=== PATIENT | female | born 1995 | race Caucasian/White ===

== ENCOUNTER 2016-12-02 12:22 | Emergency (ER) | payer BC ==
[2016-12-02] MEDS ORDERED: NORMAL SALINE 1000 ML 2,000 ML IV ONE (12:38)
--- NOTE | 2016-12-02 12:40 | ER Document Report ---
ED Medical Screen (RME) - General Stated Complaint: URINARY PROBLEM Time seen by provider: 12:38 Mode of Arrival: Ambulatory Information source: Patient Notes: 21-year-old female up on [place] with body aches and started vomiting. pulse is 148 in triage and she continues to vomit. no diarrhea. Complaining of right flank pain and a headache. She had a UTI and took over amoxicillin. Chills and sweats. I have greeted and performed a rapid initial assessment of this patient. A comprehensive ED assessment, evaluation of the patient, analysis of test results , and completion of the medical decision making process will be contacted by additional ED providers. TRAVEL OUTSIDE OF THE [place] IN LAST 30 DAYS: No - Related Data Allergies/Adverse Reactions: No Known Allergies Allergy (Verified 12/21/12 08:29) Past Medical History - Immunizations Immunizations up to date: Yes Hx Diphtheria, Pertussis, Tetanus Vaccination: Yes Physical Exam - Vital signs Vitals: Temp Pulse Resp BP Pulse Ox 98.5 F 148 H 20 115/63 100 12/02/16 12:12/02/16 12:12/02/16 12:12/02/16 12:12/02/16 12:26 Course - Vital Signs Vital signs: Temp Pulse Resp BP Pulse Ox 98.5 F 148 H 20 115/63 100 12/02/16 12:26 12/02/16 12:12/02/16 12:26 12/02/16 12:12/02/16 12:26
[2016-12-02] MEDS ORDERED: METOCLOPRAMIDE HCL 10 MG TABLET PO ONE (12:41)
[2016-12-02] MEDS ORDERED: CEFTRIAXONE 1 GM/D5W RTU 50 ML IV ONE (12:46)
[2016-12-02 13:00] LABS: APPEARANCE,URINE SLIGHTLY-CLOUDY; BILIRUBIN,URINE NEGATIVE (NEGATIVE); GLUCOSE, URINE NEGATIVE (NEGATIVE); KETONES,URINE 80 mg/dL (NEGATIVE); LEUKOCYTE ESTERASE,URINE SMALL (NEGATIVE); NITRITE,URINE NEGATIVE (NEGATIVE); PROTEIN,URINE 100 mg/dL (NEGATIVE); URINE SPECIFIC GRAVITY 1.018
--- NOTE | 2016-12-02 13:11 | ER Document Report ---
ED GI/ <NICOL HENSON - Last Filed: 12/03/16 05:58> - General Mode of Arrival: Ambulatory TRAVEL OUTSIDE OF THE [place] IN LAST 30 DAYS: No <MAXWELL CORCORAN - Last Filed: 12/03/16 09:55> - General Chief Complaint: Nausea/Vomiting Stated Complaint: URINARY PROBLEM Notes: The patient is a 21-year-old female who presents with dysuria, bilateral flank pain, nausea and vomiting. She has irregular periods and was on control, but intermittently takes control. She is throwing up everything that she is drinking over the past several days. She was diagnosed with the flu last week and was feeling better. She also started to have dysuria and took some home amoxicillin 2 days ago. She denies nausea, vomiting, abdominal pain, vaginal bleeding, fever, headache, chest pain, shortness of breath. (MAXWELL CORCORAN) - Related Data Allergies/Adverse Reactions: No Known Allergies Allergy (Verified 12/21/12 08:29) Past Medical History - General Information source: Patient - Social History Smoking Status: Never Smoker Family History: Reviewed & Not Pertinent Patient has suicidal ideation: No Patient has homicidal ideation: No Renal/ Medical History: Denies: Hx Peritoneal Dialysis - Immunizations Immunizations up to date: Yes Hx Diphtheria, Pertussis, Tetanus Vaccination: Yes <MAXWELL CORCORAN - Last Filed: 12/03/16 09:55> Review of Systems <NICOL HENSON - Last Filed: 12/03/16 05:58> <MAXWELL CORCORAN - Last Filed: 12/03/16 09:55> - Review of Systems Notes: REVIEW OF SYSTEMS: CONSTITUTIONAL: -fevers, +chills EENT: -eye pain, -difficulty swallowing, -nasal congestion CARDIOVASCULAR: -chest pain, -syncope. RESPIRATORY: -cough, -SOB GASTROINTESTINAL: -abdominal pain, +nausea, +vomiting, -diarrhea GENITOURINARY: -dysuria, -hematuria MUSCULOSKELETAL: -back pain, -neck pain SKIN: -rash or skin lesions. HEMATOLOGIC: -easy bruising or bleeding. LYMPHATIC: -swollen, enlarged glands. NEUROLOGICAL: -altered mental status or loss of consciousness, -headache, - neurologic symptoms PSYCHIATRIC: -anxiety, -depression. ALL OTHER SYSTEMS REVIEWED AND NEGATIVE. (MAXWELL CORCORAN) Physical Exam <NICOL HENSON - Last Filed: 12/03/16 05:58> <MAXWELL CORCORAN - Last Filed: 12/03/16 09:55> - Vital signs Vitals: Temp Pulse Resp BP Pulse Ox 98.5 F 148 H 20 115/63 100 12/02/16 12:26 12/02/16 12:26 12/02/16 12:26 12/02/16 12:26 12/02/16 12:26 (NICOL HENSON) (MAXWELL CORCORAN) - Notes Notes: PHYSICAL EXAMINATION: GENERAL: Well-appearing, well-nourished and in no acute distress. HEAD: Atraumatic, normocephalic. EYES: Pupils equal round and reactive to light, extraocular movements intact, sclera anicteric, conjunctiva are normal. ENT: nares patent, oropharynx clear without exudates. Moist mucous membranes. NECK: Normal range of motion, supple without lymphadenopathy LUNGS: Breath sounds clear to auscultation bilaterally and equal. No wheezes rales or rhonchi. HEART: Tachycardic, regular rhythm, no murmurs ABDOMEN: Soft, nontender, normoactive bowel sounds. No guarding, no rebound. No masses appreciated. EXTREMITIES: Normal range of motion, no pitting or edema. No cyanosis. NEUROLOGICAL: Cranial nerves grossly intact. Normal speech, normal gait. Normal sensory, motor, and reflex exams. PSYCH: Normal mood, normal affect. SKIN: Warm, Dry, normal turgor, no rashes or lesions noted. (MAXWELL CORCORAN) Course - Laboratory Result Diagrams: 12/02/16 13:20 12/02/16 13:20 <NICOL HENSON - Last Filed: 12/03/16 05:58> - Laboratory Result Diagrams: 12/02/16 13:20 12/02/16 13:20 - Diagnostic Test Radiology reviewed: Image reviewed, Reports reviewed - EKG Interpretation by Wy EKG shows normal: Sinus rhythm, ST-T Waves - non-specific T-wave changes in lateral leads Rate: Tachycardia <MAXWELL CORCORAN - Last Filed: 12/03/16 09:55> - Re-evaluation Re-evalutation: 12/03/16 02:11 Patient signed out to me by Dr. Corcoran. Patient is resting comfortably. Patient with no new complaints. No difficulty breathing. No chest pain. Heart rate in the 130s. EKG was repeated which is showing a sinus tachycardia. No SVT. Blood pressure is 90s over 60s. Patient has had some back pain and like Tylenol. Patient was recently nauseated and was given Zofran. Temperature is obtained and no fever. Patient appears well otherwise. We will continue to monitor her 12/03/16 05:59 Patient reevaluated. Heart rate is down in the 90s at this time. Blood pressure is 98/65. Patient has no complaints. No nausea. Patient does become tachycardic when she starts to move around. She will be held in the emergency department for evaluation by Dr. Corcoran at 9 AM (NICOL HENSON) Patient's nausea and vomiting have resolved. She feels much better. Ultrasound shows an intrauterine fetus with a EGD 17 [id number]. Despite 4 L of fluids, patient remains persistently tachycardic in the 120's with a leukocytosis. BP has been high 90's/60's (MAP's in 70's). She has evidence of a mild UTI, but no flank pain to suggest pyelonephritis. Flu negative. Troponin sent to assess for evidence of myocarditis, especially with having a URI last week. CXR does not show any evidence of pneumonia. With the persistent tachycardia despite an adequate amount of fluid resuscitation, patient will require admission for further evaluation and treatment. 12/02/16 21:[address] Carr (Hospitalist) and he recommends calling OB. Spoke to Dr. Pizarro (OB) and she will call Dr. Carr discuss where patient should be admitted to. 12/02/16 21:[address] Pizarro and she does not think that this is pyelonephritis or an OB issue causing her persistent tachycardia. Spoke to Dr. Carr and he will be down to evaluate patient. 12/02/16 22:44 Patient says that she is a patient of Dr. Alan. Spoke to Dr. Torres and he does not have a record of her. Will keep patient in the emergency room overnight for close monitoring with a cardiology consult in the morning. Patient completely symptomatically at this time. Heart rate 119 and blood pressure 108/65. Patient's care transferred to Dr. Henson at 22:50. 12/03/16 09:49 No overnight events. Patient remains completely asymptomatic. Heart rate decreased to 98 and on ambulation to 105. Blood pressure 105/82. Spoke to patient about small possibility of PE and risks of radiation, but due to the and no chest pain, shortness of breath or tachypnea, patient does not want further evaluation. Patient states she would like to be discharged and see cardiology as an outpatient. Given strict return precautions and she understands. Will discharge home with Macrobid for UTI and outpatient follow-up with cardiology and OB. Patient and mom comfortable with plan. (MAXWELL CORCORAN) - Vital Signs Vital signs: Temp Pulse Resp BP Pulse Ox 98.8 F 148 H 29 H 96/68 L 100 12/03/16 01:10 12/02/16 12:26 12/03/16 09:01 12/03/16 09:01 12/03/16 09:01 (NICOL HENSON) (MAXWELL CORCORAN) - Laboratory Laboratory results interpreted by me: 12/02/16 12/02/16 12/02/16 12:40 12:40 13:20 WBC 19.8 H Hct 34.8 L Seg Neuts % (Manual) 88 H Band Neutrophils % 6 H Lymphocytes % (Manual) 2 L Abs Neuts (Manual) 18.6 H Sodium Potassium Carbon Dioxide Creatine Kinase Beta HCG, Quant Urine Protein 100 H Urine Ketones 80 H Urine Blood SMALL H Urine Urobilinogen 4.0 H Ur Leukocyte Esterase SMALL H Urine HCG, Qual POSITIVE H 12/02/16 12/02/16 13:20 20:35 WBC Hct Seg Neuts % (Manual) Band Neutrophils % Lymphocytes % (Manual) Abs Neuts (Manual) Sodium 134.0 L Potassium 3.3 L Carbon Dioxide 17 L Creatine Kinase < 20 L Beta HCG, Quant 68185.00 H Urine Protein Urine Ketones Urine Blood Urine Urobilinogen Ur Leukocyte Esterase Urine HCG, Qual (NICOL HENSON) (MAXWELL CORCORAN) - Diagnostic Test Radiology results interpreted by me: CXR: NAD (MAXWELL CORCORAN) Discharge <NICOL HENSON - Last Filed: 12/03/16 05:58> <MAXWELL CORCORAN E - Last Filed: 12/03/16 09:55> - Discharge Clinical Impression: Hypokalemia Qualifiers: Weeks of gestation: 17 weeks Qualified Code(s): Z3A.17 - 17 weeks gestation of UTI (urinary tract infection) Qualifiers: Urinary tract infection type: acute cystitis Hematuria presence: without hematuria Qualified Code(s): N30.00 - Acute cystitis without hematuria Condition: Stable Disposition: HOME, SELF-CARE Additional Instructions: Take the full course of antibiotics. You must follow-up with cardiology this week to have your heart rate rechecked and further evaluation. Also, follow-up with OB for care. URINARY TRACT INFECTION: Your evaluation indicates that you have a urinary tract infection. This is due to germs growing in the bladder. This is a common problem. This infection usually responds quickly to antibiotics. Your antibiotic should be taken exactly as prescribed. Drink plenty of fluids -- three to four quarts a day. Occasionally, a bladder anesthetic will be prescribed to help stop the feeling of urgency until the antibiotic has a chance to clear the infection. This may cause your urine to be dark orange. Certain urine infections require a culture. If the doctor obtained a culture, the results will be back in two days. You should call to see if a change in treatment is needed. A repeat urinalysis after you finish treatment is often recommended. The physician will let you know if further testing is required. Call the doctor if you develop fever, chills, flank pain, inability to urinate, or blood in the urine. ANTIBIOTIC THERAPY: You have been given an antibiotic prescription. It's important that you take all the medication, unless instructed otherwise by your physician. Failure to complete the entire course can result in relapse of your condition. Common side effects of antibiotics include nausea, intestinal cramping, or diarrhea. Women may develop vaginal yeast infections, and babies can get yeast (thrush) in the mouth following the use of antibiotics. Contact your physician if you develop significant side effects from this medication. Allergy to this antibiotic can result in hives, wheezing, faintness, or itching. If symptoms of allergy occur, stop the medication and call the doctor. NITROFURANTOIN (MACRODANTIN, MACROBID): You have received a prescription for nitrofurantoin (Macrodantin). This antibiotic is used for urinary tract infections. Women who are or nursing should notify the physician before taking this medicine. If you have ever had a problem caused by this medication in the past, be sure the physician is aware of it. Common side effects of this medicine include nausea, vomiting, or decreased appetite. Notify your physician if these side effects become severe. Immediately stop this medicine and call the physician if you develop cough , shortness of breath, chest pain, weakness, jaundice (yellow color of the skin and whites of the eyes), or a skin rash. FOLLOW-UP CARE: If you have been referred to a physician for follow-up care, call the physician s office for an appointment as you were instructed or within the next two days. If you experience worsening or a significant change in your symptoms, notify the physician immediately or return to the Emergency Department at any time for re-evaluation. You are . care is best started as early in as possible. If you're unsure about continuing this , you should discuss this with your physician or with furniture removalist's assistant at [facility]. You should take only medications approved by your physician. Acetaminophen can safely be taken for minor pains. As a rule, medication for chronic conditions such as asthma or seizures can safely be continued. You should discuss with the physician every medicine you take. Any regular exercise program can be continued. Talk to your physician, however, before engaging in competitive or demanding sports. Alcohol, smoking, and "street drugs" are dangerous to your baby. Cocaine is especially dangerous. Don't use any illicit drugs! Prescriptions: Doxylamine/Pyridoxine HCl [Mae Orellana 10-10 mg Tablet] 1 each PO Q8H PRN #30 tablet. PRN Reason: Nitrofurantoin/Nitrofuran Mac [Macrobid 100 mg Capsule] 1 tab PO BID #10 capsule Referrals: ANALI SANDHU MD [ACTIVE STAFF] - Follow up as needed
[2016-12-02 13:43] LABS: HEMATOCRIT 34.8 % (36.0-47.0); HGB HCT DIFFERENCE 1.2; MEAN CORPUSCULAR HEMOGLOBIN 29.1 pg (27.0-33.4); MEAN CORPUSCULAR HGB CONC 34.4 g/dL (32.0-36.0); MEAN CORPUSCULAR VOLUME 85 fl (80-97); RED BLOOD COUNT 4.12 10^6/uL (3.72-5.28); RED CELL DISTRIBUTION WIDTH 13.8 % (11.5-14.0); WHITE BLOOD COUNT 19.8 10^3/uL (4.0-10.5)
[2016-12-02 13:49] LABS: ALANINE AMINOTRANSFERASE 26 U/L (9-52); ALKALINE PHOSPHATASE 120 U/L (38-126); ANION GAP 14 (5-19); ASPARTATE AMINO TRANSFERASE 20 U/L (14-36); BLOOD UREA NITROGEN 8 mg/dL (7-20); CALCIUM 9.4 mg/dL (8.4-10.2); CARBON DIOXIDE 17 mmol/L (22-30); CHLORIDE 103 mmol/L (98-107); CREATININE RESULT 0.66 mg/dL (0.52-1.25); GLUCOSE 104 mg/dL (75-110); POTASSIUM 3.3 mmol/L (3.6-5.0); TOTAL PROTEIN 7.4 g/dL (6.3-8.2)
[2016-12-02 13:56] LABS: BAND NEUTROPHILS % (MANUAL) 6 % (3-5); BASOPHILS % (MANUAL) 0 % (0-2); EOSINOPHILS % (MANUAL) 0 % (0-6); LYMPHOCYTES % (MANUAL) 2 % (13-45); TOTAL CELLS COUNTED 100
[2016-12-02 13:57] LABS: RBC MORPHOLOGY COMMENT NORMO-CYTIC/CHROMIC; TOXIC GRANULATION 1+; TOXIC VACUOLATION PRESENT
[2016-12-02] MEDS ORDERED: NORMAL SALINE 1000 ML 1,000 ML IV PRN (15:41)
[2016-12-02] MEDS ORDERED: ACETAMINOPHEN 325 MG TABLET PO ONE (17:15)
[2016-12-02] MEDS ORDERED: POTASSIUM CHLORIDE 10 MEQ TABLET.SA PO ONE (20:56)
[2016-12-02] MEDS ORDERED: NORMAL SALINE 1000 ML 1,000 ML IV ONE (21:01)
[2016-12-02] MEDS ORDERED: CEFTRIAXONE INJ 1000 MG VIAL IV SCH (22:45)
--- NOTE | 2016-12-02 23:08 | PDOC CONSULTATION ---
Consultation Consult Date: 12/02/16 Attending physician:: SEDRICK CARR Consult reason:: IUP at 17wks ega, Maternal Tachycardia History of Present Illness Admission Date/PCP: 12/02/2016 Patient complains of: tachycardia History of Present Illness: CHANTEL YARBROUGH is a 21 year old female at 17+1ega with HANH 05/11/2017 who presented to the ED today for vomiting and unable to tolerate po intake since Friday. 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 She reports that she had nausea and vomiting starting on Friday and then 4 episodes on Friday. She reports that she felt very hungry this am and tried to eat and drink water then promptly threw up everything. She reports back ache because she has been in bed and not moving since Friday. She also reports that on Friday she had painful urination - pain resolves after each void. She has urinary frequency as well - she took some amoxicillin from home. She ate some chick gomez a while in the ER. She reports that she is followed by [facility] in [place]. She was reportedly dx with the flu last week but is feeling better from that. She denies CP/SOB, Denies fevers/ chills, she denies VB/LOF/abd pain. She denies uterine pain only reports lower pelvis above pubic bone pain with voiding. Past Medical History LMP: oct 2016 Gynecological Infection: No Obstetrical History: none Social History Information Source: Patient, Parent Lives with: Family Smoking Status: Never Smoker Frequency of Alcohol Use: None Hx Recreational Drug Use: No Drugs: None Hx Prescription Drug Abuse: No - Advance Directive Resuscitation Status: Full Code Family History Family History: Reviewed & Not Pertinent Parental Family History Reviewed: No Children Family History Reviewed: NA Sibling(s) Family History Reviewed.: NA Medication/Allergy Home Medications: Cephalexin Monohydrate [Keflex 500 mg Capsule] 500 mg PO BID #10 capsule Nitrofurantoin/Nitrofuran Mac [Macrobid 100 mg Capsule] 1 tab PO BID #10 capsule 12/02/16 Allergies/Adverse Reactions: No Known Allergies Allergy (Verified 12/21/12 08:29) Review of Systems Constitutional: ABSENT: chills, fever(s), headache(s), weight gain, weight loss Cardiovascular: PRESENT: palpitations. ABSENT: chest pain, dyspnea on exertion , edema, orthropnea Respiratory: ABSENT: cough, hemoptysis Gastrointestinal: PRESENT: as per HPI, nausea, vomiting Genitourinary: PRESENT: dysuria. ABSENT: hematuria Musculoskeletal: ABSENT: joint swelling Integumentary: ABSENT: rash, wounds Neurological: ABSENT: abnormal gait, abnormal speech, confusion, dizziness, focal weakness, syncope Psychiatric: ABSENT: anxiety, depression, homidical ideation, suicidal ideation Endocrine: ABSENT: cold intolerance, heat intolerance, polydipsia, polyuria Hematologic/Lymphatic: ABSENT: easy bleeding, easy bruising Physical Exam - Physical Exam Vital Signs: Temp Pulse Resp BP Pulse Ox 98.5 F 148 H 25 H 90/56 L 100 12/02/16 12:26 12/02/16 12:26 12/02/16 20:44 12/02/16 20:39 12/02/16 20:44 Intake & Output 12/01/16 12/02/16 12/03/16 06:59 06:59 06:59 Weight 83.1 kg General appearance: PRESENT: no acute distress, well-developed, well-nourished Head exam: PRESENT: atraumatic, normocephalic Respiratory exam: PRESENT: clear to auscultation erin, symmetrical, unlabored Cardiovascular exam: PRESENT: +S1, +S2, tachycardia Vascular exam: PRESENT: normal capillary refill GI/Abdominal exam: PRESENT: normal bowel sounds, soft, other - uterus nttp Rectal exam: PRESENT: deferred Extremities exam: PRESENT: full ROM. ABSENT: calf tenderness, clubbing, pedal edema Musculoskeletal exam: PRESENT: ambulatory Neurological exam: PRESENT: alert, awake, oriented to person, oriented to place , oriented to time, oriented to situation, CN II-XII grossly intact. ABSENT: motor sensory deficit Psychiatric exam: PRESENT: appropriate affect, normal mood. ABSENT: homicidal ideation, suicidal ideation Skin exam: PRESENT: dry, intact, warm. ABSENT: cyanosis, rash Result Laboratory Results: 12/02/16 13:20 12/02/16 13:20 12/02/16 12/02/16 12/02/16 12:40 13:20 13:20 WBC 19.8 H RBC 4.12 Hgb 12.0 Hct 34.8 L MCV 85 MCH 29.1 MCHC 34.4 RDW 13.8 Plt Count 166 Seg Neutrophils % Not Reportable Lymphocytes % Not Reportable Monocytes % Not Reportable Eosinophils % Not Reportable Basophils % Not Reportable Absolute Neutrophils Not Reportable Absolute Lymphocytes Not Reportable Absolute Monocytes Not Reportable Absolute Eosinophils Not Reportable Absolute Basophils Not Reportable Sodium 134.0 L Potassium 3.3 L Chloride 103 Carbon Dioxide 17 L Anion Gap 14 BUN 8 Creatinine 0.66 Est GFR ( Amer) > 60 Est GFR (Non-Af Amer) > 60 Glucose 104 Calcium 9.4 Total Bilirubin 1.0 AST 20 ALT 26 Alkaline Phosphatase 120 Total Protein 7.4 Albumin 4.0 Lipase 27.0 Urine Color DARK YELLOW Urine Appearance SLIGHTLY-CLOUDY Urine pH 5.0 Ur Specific [place] 1.018 Urine Protein 100 H Urine Glucose (UA) NEGATIVE Urine Ketones 80 H Urine Blood SMALL H Urine Nitrite NEGATIVE Ur Leukocyte Esterase SMALL H Urine WBC (Auto) 77 Urine RBC (Auto) 10 Blood Type 12/02/16 13:20 WBC RBC Hgb Hct MCV MCH MCHC RDW Plt Count Seg Neutrophils % Lymphocytes % Monocytes % Eosinophils % Basophils % Absolute Neutrophils Absolute Lymphocytes Absolute Monocytes Absolute Eosinophils Absolute Basophils Sodium Potassium Chloride Carbon Dioxide Anion Gap BUN Creatinine Est GFR ( Amer) Est GFR (Non-Af Amer) Glucose Calcium Total Bilirubin AST ALT Alkaline Phosphatase Total Protein Albumin Lipase Urine Color Urine Appearance Urine pH Ur Specific [place] Urine Protein Urine Glucose (UA) Urine Ketones Urine Blood Urine Nitrite Ur Leukocyte Esterase Urine WBC (Auto) Urine RBC (Auto) Blood Type O POSITIVE 12/02/16 12/02/16 20:35 20:35 Creatine Kinase < 20 L Troponin I < 0.012 Impressions: Obstetrics Ultrasound 12/02/16 16:39 IMPRESSION: LIVING INTRAUTERINE . ESTIMATED GESTATIONAL AGE 17 WEEK 1 DAY. NO VISUALIZED ANOMALIES. Trimester of : Second trimester - 13 weeks 1 day to 27 weeks 6 days. Chest X-Ray 12/02/16 20:56 IMPRESSION: NO ACUTE RADIOGRAPHIC FINDING IN THE CHEST. Assessment & Plan - Diagnosis (1) Qualifiers: Weeks of gestation: 17 weeks Qualified Code(s): Z3A.17 - 17 weeks gestation of Is this a current diagnosis for this admission?: YesPlan: VIUP at 17+1ega. She reports that she is obtaining PNC at [facility] in [place]. has been uncomplicated and currently here in ER for non related complaint. Hospitalist is considering admitting pt for her persistent tachycardia and an evaluation of such - if so then would recommend Daily Doptones. Pt with uncomplicated UTI without fever or CVAT - no e/o pyelonephritis. Appreciate consult from Dr. Corcoran and Dr. Carr and will continue to follow with you. Please call with any questions. (2) UTI (urinary tract infection) Qualifiers: Urinary tract infection type: acute cystitis Hematuria presence: without hematuria Qualified Code(s): N30.00 - Acute cystitis without hematuria Is this a current diagnosis for this admission?: YesPlan: Pt has received IV ROcephin in the ER. Pt has never been febrile in the ER and denies fever at home. She reports Dysuria, frequency. No fever, no CVAT. Mild leukocytosis likely due to pt with recent Flu/Gastroenteritis and Uncomplicated UTI. Would continue to watch. Repeat CBC with diff in am. Very benign exam in ER. Would recommend po abx Cephalexin 500mg po QID until Urine Cx returns and abx can be tailored further. She also reports that she has an appt on with her FL[facility] COORD[facility]ATOR. (3) Tachycardia Is this a current diagnosis for this admission?: YesPlan: Defer management per Hospitalist/Cardiology. BPs appear stable and this may be normal for her. SHe is completely asymptomatic from BP. Denies dizziness/ lightheadedness. No problem with ambulation and no orthostatic complaints. MAPs ok. - Time Time Spent: 30 to 50 Minutes Critical Time spent with patient: Less than 15 minutes Medications reviewed and adjusted accordingly: Yes Anticipated discharge: Home Within: within 48 hours - Inpatient Certification Based on my medical assessment, after consideration of the patient's comorbidities, presenting symptoms, or acuity I expect that the services needed warrant INPATIENT care.: Yes I certify that my determination is in accordance with my understanding of Medicare's requirements for reasonable and necessary INPATIENT services [42 CFR 412.3e].: Yes Medical Necessity: Failure to Improve With Outpatient Therapy, Other - Needs evaluation of perisistent tachycardia
[2016-12-03] MEDS: ONDANSETRON HCL INJ/PF 4 MG/2 ML SDV IV PRN ×2 (00:15→08:39)
[2016-12-03] MEDS ORDERED: NORMAL SALINE 1000 ML 1,000 ML IV ONE (01:03)
[2016-12-03] MEDS ORDERED: ACETAMINOPHEN 325 MG TABLET PO ONE (01:37)
--- NOTE | 2016-12-03 08:54 | ER Document Report ---
Doctor's Note Notes: 12/03/16 08:54 Patient's heart rate is 100, she states she feels well, blood pressure was 90s over 60s, patient will be ambulating reevaluated
[2016-12-03 09:57] VITALS: BP 104/74
--- NOTE | 2016-12-03 23:47 | EKG REPORT ---
SEVERITY:- BORDERLINE ECG - SINUS TACHYCARDIA BORDERLINE T ABNORMALITIES, DIFFUSE LEADS : Confirmed by: Fabio Dumont 03-Dec-2016 23:46:55
--- NOTE | 2016-12-03 23:48 | EKG REPORT ---
SEVERITY:- ABNORMAL ECG - SINUS TACHYCARDIA PROBABLE LEFT ATRIAL ABNORMALITY NONSPECIFIC T ABNORMALITIES, DIFFUSE LEADS : Confirmed by: Fabio Dumont 03-Dec-2016 23:47:14
== END 2016-12-03 10:23 | disposition home or self-care (01) ==
LOC: ER 12:22
DX: O23.12 Infections of bladder in pregnancy, second trimester (principal); O99.282 Endocrine, nutritional and metabolic diseases complicating pregnancy, second trimester; E87.6 Hypokalemia; O21.9 Vomiting of pregnancy, unspecified; O26.892 Other specified pregnancy related conditions, second trimester; R00.0 Tachycardia, unspecified; O99.89 Other specified diseases and conditions complicating pregnancy, childbirth and the puerperium; M54.9 Dorsalgia, unspecified; O99.112 Other diseases of the blood and blood-forming organs and certain disorders involving the immune mechanism complicating pregnancy, second trimester; D72.829 Elevated white blood cell count, unspecified; Z3A.17 17 weeks gestation of pregnancy
CPT/HCPCS: 93005 ×2; 99285; 96361; 96375; 96365; 96366; 86900; 86901; 36415; 87086; 82550; 84702; 83690; 85025; 81025; 87088; 80053; 81001; 84484; 87186; 83605; 87804; 71010; 76805; 93010 ×2; J0696 ×2; J2405; J7030

== ENCOUNTER 2017-11-26 22:43 | Emergency (ER) | payer BC, MEDICAID ==
[2017-11-26] MEDS ORDERED: ACETAMINOPHEN 325 MG TABLET PO ONE (23:51)
--- NOTE | 2017-11-27 00:55 | RADIOLOGY REPORT (SQ) ---
EXAM DESCRIPTION: ANKLE LEFT COMPLETE CLINICAL HISTORY: injury COMPARISON: None. FINDINGS: 3 views of the left ankle. No acute fracture or dislocation. Normal osseous mineralization. Tibial plafond and talar dome have normal appearance. Base of the fifth metatarsal is intact. IMPRESSION: No acute fracture or dislocation.
--- NOTE | 2017-11-27 03:56 | ER Document Report ---
ED Extremity Problem, Lower - General Chief Complaint: Ankle Injury Stated Complaint: LEFT ANKLE INJURY Time Seen by Provider: 11/27/17 03:24 Mode of Arrival: Wheelchair Information source: Patient TRAVEL OUTSIDE OF THE [place] IN LAST 30 DAYS: No - HPI Patient complains to provider of: Injury - pt hit L ankle with bowling ball accidentally while throwing the ball. - Related Data Allergies/Adverse Reactions: No Known Allergies Allergy (Verified 12/21/12 08:29) Past Medical History - General Information source: Patient - Social History Smoking Status: Never Smoker Cigarette use (# per day): No Family History: Reviewed & Not Pertinent Renal/ Medical History: Denies: Hx Peritoneal Dialysis - Immunizations Immunizations up to date: Yes Hx Diphtheria, Pertussis, Tetanus Vaccination: Yes Review of Systems - Review of Systems Constitutional: No symptoms reported EENT: No symptoms reported Cardiovascular: No symptoms reported Respiratory: No symptoms reported Gastrointestinal: No symptoms reported Musculoskeletal: See HPI, Joint pain -: Yes All other systems reviewed and negative Physical Exam - General General appearance: Appears well In distress: None - Extremities Ankle: Tender - there is min-mod TTP of the lateral aspect of the L ankle diffusely. It is N/V intact and there is FROM Course - Diagnostic Test Radiology reviewed: Reports reviewed - neg fx Procedures - Immobilization Left Ankle Time completed: 03:55 Pre-Proc Neuro Vasc Exam: Normal Immobilizer type: Ankle stirrup Performed by: RN Post-Proc Neuro Vasc Exam: Normal Alignment checked and good: Yes Discharge - Discharge Clinical Impression: Contusion of ankle, left Qualifiers: Encounter type: initial encounter Qualified Code(s): S90.02XA - Contusion of left ankle, initial encounter Condition: Stable Disposition: HOME, SELF-CARE Instructions: Ankle Stirrup Splint ([facility]), Use of Crutches ([facility]), Ice & Elevation ([facility]), Sprained Ankle ([facility]) Additional Instructions: rest, tylenol/motrin for pain, no weight bearing for 3 days, return if worse Referrals: MAXWELL DE LEON MD [Primary Care Provider] - Follow up as needed RAHEL PATRICIA MD [ACTIVE STAFF] - Follow up as needed
== END 2017-11-27 04:28 | disposition home or self-care (01) ==
LOC: ER 22:43
DX: S90.02XA Contusion of left ankle, initial encounter (principal); W21.09XA Struck by other hit or thrown ball, initial encounter; Y93.54 Activity, bowling
CPT/HCPCS: 99283; 73610; L1902

== ENCOUNTER 2019-08-02 07:59 | Day surgery (SDC) | payer BC ==
[~2019-08-02 07:59] MED LIST: ACETAMINOPHEN 1,000 MG/100 ML RTUPB IV ONE; DEXAMETHASONE SOD PHOS INJ 10 MG/1 ML VIAL ONE; FENTANYL CITRATE INJ/PF 100 MCG/2 ML AMPUL ONE; LIDOCAINE 2% INJ (20 MG/ML) 20 ML MDV ONE; MIDAZOLAM 2 MG/2 ML INJ ONE; ONDANSETRON HCL INJ/PF 4 MG/2 ML SDV ONE; PROPOFOL INJ 200 MG/20 ML VIAL IV ONE; SUCCINYLCHOLINE CHLORIDE INJ 200 MG/10 ML VIAL ONE
[2019-08-02] MEDS ORDERED: BUPIVACAINE HCL 0.5%/EPI 1:200000 INJ 1.8 ML CARTRIDGE ONE (09:16)
--- NOTE | 2019-08-07 21:29 | Operative Report ---
Operative Report-[facility] Operative Report: DATE OF OPERATION: August 02, 2019 PREOPERATIVE DIAGNOSIS: 1. Adenotonsillar hypertrophy 2. Upper airway resistance syndrome/UARS 3. Acute recurrent tonsillitis POSTOPERATIVE DIAGNOSIS: 1. Adenotonsillar hypertrophy 2. Upper airway resistance syndrome/UARS 3. Acute recurrent tonsillitis PROCEDURE: 1. Bilateral tonsillectomy patient age greater than 12 2. Adenoidectomy Primary Surgeon of Record: Dr. Raúl Martinez MANAGER ENDOSCOPY: None Anesthesia Staff: ARYA Gómez ANESTHESIA: General Endotracheal Tube Anesthesia DRAINS: None SPONGE COUNT: Verified Needle Count: N/A SPECIMEN/MATERIALS FORWARD TO THE LAB: 1. Left and Right Tonsillar Tissue ESTIMATED BLOOD LOSS: 5 mL IV FLUIDS: 500 mL COMPLICATIONS: None Findings: 1. The tonsils were 2-3+ in size, were cryptic in appearance, and with tonsillar debris present bilateral. 2. Adenoid hypertrophy was 2+ with yellowish nasopharyngeal mucus present. 3. The soft palatal tissues were redundant in nature and the uvula was unremarkable in appearance. INDICATIONS: This is a this is a 24-year-old female patient who was seen and evaluated in the [place] otolaryngology office. The patient had been referred for and the patient complained of a history of acute recurrent tonsillitis episodes requiring antibiotic treatment each year over the years and with the episode she experiences significant sore throat pain, she misses days from school or work over the years, is with decreased p.o. intake, and is with poor sleep quality during episodes. The patient is also with history of upper airway resistance symptoms over the years with no witnessed apneas. After extensive discussion with the patient the recommendation and plan was to proceed with a tonsillectomy and adenoidectomy. The procedure and all of the risks and complications were all discussed in detail with the patient. She voiced an understanding of the described surgical plan, were in agreement, and consent was obtained. DESCRIPTION OF OPERATIVE PROCEDURE: The patient was taken to the main operating room and was placed on the operating room table in the supine position. Appropri ate monitors were placed. Using mask and IV access general anesthesia was induced. The patient was next transorally intubated without difficulty. The table was then rotated 90 and the patient was positioned and prepped for tonsil and adenoid surgery. The lips, teeth, tongue, and gums were inspected and noted to be without defect. The patient had a mouth gag inserted. It was opened and the patient was placed into suspension. There was a soft catheter passed through the nose that was used to suspend the soft palate. Findings are as noted above. At this point the suction electrocautery unit was used to ablate the adenoid tissue with adequate hemostasis being noted. The plasma J-hook device was used to dissect and remove the tonsils from the tonsillar fossae without difficulty. This was also used to provide adequate hemostasis. Normal saline irrigation was performed and was suctioned. Adequate hemostasis was noted. The soft catheter was released and removed from the patients nose. The patient was next released from suspension and the mouth gag was closed. It was opened again and there was again no bleeding noted. It was then removed from the patient's mouth without difficulty. There was no damage to the lips, teeth, tongue, or gums noted. The patient was then returned to the anesthesia staff and was allowed to emerge from general anesthesia. The patient was extubated in the operating room and was transported to the post anesthesia recovery unit in stable condition. There were no complications.
== END 2019-08-02 11:41 | disposition home or self-care (01) ==
LOC: SC 07:59
PROVIDERS: ATTEND Otolaryngology
DX: J35.3 Hypertrophy of tonsils with hypertrophy of adenoids (principal); J03.91 Acute recurrent tonsillitis, unspecified; R06.83 Snoring; D64.9 Anemia, unspecified
CPT/HCPCS: 36415; 86003 ×24; 82785; 88304 ×2; 00170; 42821; J2250; J3490 ×2; J3010; J0330; J2405; J2704; J1100; J0131; 170

== ENCOUNTER 2019-08-12 08:27 | Emergency (ER) | payer BC ==
[2019-08-12] MEDS ORDERED: NORMAL SALINE 1000 ML 1,000 ML IV ONE (10:49)
[2019-08-12] MEDS ORDERED: KETOROLAC TROMETHAMINE INJ/PF 30 MG/1 ML SDV IV ONE (10:49)
--- NOTE | 2019-08-12 10:56 | ER Document Report ---
ED General - General Chief Complaint: Post Surgical Pain Stated Complaint: THROAT PAIN/POST TONSILLECTOMY Time Seen by Provider: 08/12/19 10:41 Primary Care Provider: MAXWELL DE LEON MD [Primary Care Provider] - Follow up as needed Mode of Arrival: Ambulatory Information source: Patient, Parent TRAVEL OUTSIDE OF THE [place] IN LAST 30 DAYS: No - HPI Patient complains to provider of: post-op complication Onset: Other - pt. had T and A surgery per Dr. Martinez 08/02. Mom states pt. coughed up 22 blood clots last night and has had decreased po intake in the past several days. She called his office and was told to come here for further evaluation - Related Data Allergies/Adverse Reactions: No Known Allergies Allergy (Verified 08/12/19 08:36) Past Medical History - General Information source: Patient, Parent - Social History Smoking Status: Never Smoker Chew tobacco use (# tins/day): No Frequency of alcohol use: None Drug Abuse: None Family History: Reviewed & Not Pertinent Patient has suicidal ideation: No Patient has homicidal ideation: No - Past Medical History Cardiac Medical History: Denies: Hx Heart Attack, Hx Hypertension Pulmonary Medical History: Denies: Hx Asthma Neurological Medical History: Denies: Hx Cerebrovascular Accident, Hx Seizures Renal/ Medical History: Denies: Hx Peritoneal Dialysis GI Medical History: Denies: Hx Hepatitis, Hx Hiatal Hernia, Hx Ulcer Psychiatric Medical History: Reports: Hx Depression - anxiety Infectious Medical History: Denies: Hx Hepatitis Past Surgical History: Reports: Hx Tonsillectomy. Denies: Hx Hysterectomy, Hx Mastectomy, Hx Open Heart Surgery, Hx Pacemaker - Immunizations Immunizations up to date: Yes Hx Diphtheria, Pertussis, Tetanus Vaccination: Yes Review of Systems - Review of Systems Constitutional: No symptoms reported EENT: See HPI, Throat pain Cardiovascular: No symptoms reported Respiratory: No symptoms reported Gastrointestinal: No symptoms reported Musculoskeletal: No symptoms reported Hematologic/Lymphatic: No symptoms reported Neurological/Psychological: No symptoms reported -: Yes All other systems reviewed and negative Physical Exam - Vital signs Vitals: Temp Pulse Resp BP Pulse Ox 97.9 F 96 18 138/95 H 96 08/12/19 08:29 08/12/19 08:29 08/12/19 08:29 08/12/19 08:29 08/12/19 08:29 - General General appearance: Appears well In distress: Mild - HEENT Head: Normocephalic Mouth/Lips: Other - there is some minimal edema of the tongue diffusely Pharynx: Erythema - there is some erythema of the posterior pharynx diffusely but airway is patent and appears the normal course of post-op healing is occurring. Course - Re-evaluation Re-evalutation: 08/12/19 12:07 Pt. feels better after pain meds and IVF. I attempted to call Dr. Martinez but his office just closed for lunch. The pt. and her mom did not want to wait any longer and they will call his office later this afternoon for recheck. I have told them they are always welcome to [facility] if any other concerns arise. - Vital Signs Vital signs: Temp Pulse Resp BP Pulse Ox 97.9 F 96 18 138/95 H 96 08/12/19 08:29 08/12/19 08:29 08/12/19 08:29 08/12/19 08:29 08/12/19 08:29 - Laboratory Result Diagrams: 08/12/19 11:15 08/12/19 11:15 Laboratory results interpreted by me: 08/12/19 08/12/19 11:15 11:15 MCH 26.2 L RDW 14.4 H AST 48 H Alkaline Phosphatase 129 H Total Protein 8.3 H Discharge - Discharge Clinical Impression: Post-tonsillectomy pain Condition: Stable Disposition: HOME, SELF-CARE Additional Instructions: rest, continue current meds, return if worse Referrals: MAWXELL DE LEON MD [Primary Care Provider] - Follow up as needed
[2019-08-12 11:35] LABS: ABSOLUTE BASOPHILS # (AUTO) 0.1 10^3/uL (0.0-0.2); ABSOLUTE EOSINOPHILS # (AUTO) 0.1 10^3/uL (0.0-0.6); ABSOLUTE LYMPHOCYTES (AUTO) 2.1 10^3/uL (0.5-4.7); ABSOLUTE MONOCYTES (AUTO) 0.5 10^3/uL (0.1-1.4); ABSOLUTE NEUT (AUTO) 7.7 10^3/uL (1.7-8.2); BASOPHILS % (AUTO) 0.6 % (0-2); EOSINOPHILS % (AUTO) 1.1 % (0-6); HEMATOCRIT 41.3 % (36.0-47.0); HEMOGLOBIN 13.6 g/dL (12.0-15.5); LYMPHOCYTES % (AUTO) 19.7 % (13-45); MEAN CORPUSCULAR HEMOGLOBIN 26.2 pg (27.0-33.4); MEAN CORPUSCULAR HGB CONC 32.9 g/dL (32.0-36.0); MEAN CORPUSCULAR VOLUME 80 fl (80-97); MONOCYTES % (AUTO) 4.7 % (3-13); PLATELET COUNT 291 10^3/uL (150-450); RED BLOOD COUNT 5.19 10^6/uL (3.72-5.28); RED CELL DISTRIBUTION WIDTH 14.4 % (11.5-14.0); SEGMENTED NEUTROPHILS % (AUTO) 73.9 % (42-78); TOTAL CELLS COUNTED % (AUTO) 100 %; WHITE BLOOD COUNT 10.4 10^3/uL (4.0-10.5)
[2019-08-12 11:57] LABS: ALBUMIN 4.7 g/dL (3.5-5.0); ALKALINE PHOSPHATASE 129 U/L (38-126); ANION GAP 15 (5-19); ASPARTATE AMINO TRANSFERASE 48 U/L (14-36); BILIRUBIN,DIRECT 0.2 mg/dL (0.0-0.4); BILIRUBIN,TOTAL 0.5 mg/dL (0.2-1.3); BLOOD UREA NITROGEN 14 mg/dL (7-20); CALCIUM 9.8 mg/dL (8.4-10.2); CARBON DIOXIDE 23 mmol/L (22-30); CHLORIDE 103 mmol/L (98-107); GLUCOSE 81 mg/dL (75-110); POTASSIUM 4.5 mmol/L (3.6-5.0); TOTAL PROTEIN 8.3 g/dL (6.3-8.2)
[2019-08-12 12:21] VITALS: BP 148/89
== END 2019-08-12 12:21 | disposition home or self-care (01) ==
LOC: ER 08:27
DX: G89.18 Other acute postprocedural pain (principal); R07.0 Pain in throat; R04.2 Hemoptysis; Z90.89 Acquired absence of other organs
CPT/HCPCS: 36415; 85025; 80053; J1885; J7030; 96361; 96374; 99283

== ENCOUNTER → 2020-02-11 | Emergency (ER) | payer BC ==
[~2020-02-11] MED LIST changes: -ACETAMINOPHEN 1,000 MG/100 ML RTUPB IV ONE; -DEXAMETHASONE SOD PHOS INJ 10 MG/1 ML VIAL ONE; +DEXAMETHASONE SOD PHOSPHATE INJ 4 MG/1 ML VIAL ONE; +DIAZEPAM INJ 10 MG/2 ML DISP.SYRIN IV ONE; +DIPHENHYDRAMINE HCL 50 MG/ML VIAL IV PRN; +FENTANYL CITRATE INJ/PF 100 MCG/2 ML AMPUL IV PRN; +GLUCAGON,HUMAN RECOMB 1 MG INJ IM ONE; +GLUCAGON,HUMAN RECOMB 1 MG INJ IV ONE; -LIDOCAINE 2% INJ (20 MG/ML) 20 ML MDV ONE; +MEPERIDINE HCL/PF INJ 25 MG/1 ML DISP.SYRIN IV PRN; +METOCLOPRAMIDE HCL INJ/PF 10 MG/2 ML SDV IV ONE; +MORPHINE SULFATE 10 MG/ML INJ IV PRN; +ONDANSETRON HCL INJ/PF 4 MG/2 ML SDV IV PRN; +OXYCODONE-ACETAMINOPHEN 5-325 MG TABLET PO PRN; +PROMETHAZINE HCL INJ 25 MG/1 ML VIAL IV PRN
--- NOTE | 2020-02-11 11:00 | ER Document Report ---
ED Medical Screen (RME) - General Chief Complaint: Foreign Body Stated Complaint: FOREIGN BODY Time Seen by Provider: 02/11/20 10:57 Primary Care Provider: MAXWELL DE LEON MD [Primary Care Provider] - Follow up as needed Mode of Arrival: Ambulatory Information source: Patient Notes: 24-year-old female presents to the emergency department with complaints of something stuck in her throat. Patient reports she ate full chicken last night. Since that time it feels like something stuck there. She reports she can drink fluids but it comes right back up. Patient is holding an emesis bag and every now and then she will spit into it. Her voice is clear. Respiratory rate even and unlabored. Patient will be treated with 1 mg of glucagon here in the pit. I have greeted and performed a rapid initial assessment of this patient. A comprehensive ED assessment and evaluation of the patient, analysis of test results and completion of the medical decision making process will be conducted by additional ED providers. TRAVEL OUTSIDE OF THE [place] IN LAST 30 DAYS: No - Related Data Allergies/Adverse Reactions: No Known Allergies Allergy (Verified 02/11/20 11:20) Past Medical History - Past Medical History Cardiac Medical History: Denies: Hx Heart Attack, Hx Hypertension Pulmonary Medical History: Denies: Hx Asthma Neurological Medical History: Denies: Hx Cerebrovascular Accident, Hx Seizures Renal/ Medical History: Denies: Hx Peritoneal Dialysis GI Medical History: Denies: Hx Hepatitis, Hx Hiatal Hernia, Hx Ulcer Psychiatric Medical History: Reports: Hx Depression - anxiety Infectious Medical History: Denies: Hx Hepatitis Past Surgical History: Reports: Hx Tonsillectomy. Denies: Hx Hysterectomy, Hx Mastectomy, Hx Open Heart Surgery, Hx Pacemaker - Immunizations Immunizations up to date: Yes Hx Diphtheria, Pertussis, Tetanus Vaccination: Yes Physical Exam - Vital signs Vitals: Temp Pulse Resp BP Pulse Ox 98.5 F 104 H 16 147/84 H 100 02/11/20 11:10 02/11/20 11:10 02/11/20 11:10 02/11/20 11:10 02/11/20 11:10 Course - Vital Signs Vital signs: Temp Pulse Resp BP Pulse Ox 98.5 F 104 H 16 147/84 H 100 02/11/20 11:21 02/11/20 11:10 02/11/20 11:10 02/11/20 11:10 02/11/20 11:10 Doctor's Discharge - Discharge Referrals: MAXWELL DE LEON MD [Primary Care Provider] - Follow up as needed
--- NOTE | 2020-02-11 12:02 | ER Document Report ---
ED Foreign Body - General Chief Complaint: Swallowed Foreign Body Stated Complaint: FOREIGN BODY Time Seen by Provider: 02/11/20 10:57 Primary Care Provider: MAXWELL DE LEON MD [Primary Care Provider] - Follow up as needed Mode of Arrival: Ambulatory Notes: CHIEF COMPLAINT: Possible foreign body HPI: 24-year-old female presenting to the emergency department complaining of difficulty swallowing. Patient states she was eating barbecue chicken that had been pulled apart and cooked in a crockpot without bones when she felt like something became stuck in the lower throat. Patient states she tried to drink Coke milk and other items to see if she can get the food bolus to move but could not. Patient states she has still been gagging today and has not been able to eat or drink. Patient denies difficulty with speech or speaking ROS: See HPI - all other systems were reviewed and are otherwise negative Constitutional: no fever ENT: no sore throat, positive foreign body sensation in throat Cardiovascular: no chest pain Resp: no SOB, no cough GI: no vomiting, no diarrhea, no abdominal pain MEDICATIONS: I agree with the patient medications as charted by the RN. ALLERGIES: I agree with the allergies as charted by the RN. PAST MEDICAL HISTORY/PAST SURGICAL HISTORY: Reviewed and agree as charted by RN. SOCIAL HISTORY: Reviewed and agree as charted by RN. FAMILY HISTORY: No significant familial comorbid conditions directly related to patient complaint EXAM: Reviewed vital signs as charted by RN. CONSTITUTIONAL: Alert and oriented and responds appropriately to questions. Well-appearing; well-nourished, no acute distress HEAD: Normocephalic; atraumatic EYES: PERRL; Conjunctivae clear, sclerae non-icteric ENT: normal nose; no rhinorrhea; moist mucous membranes; pharynx without lesions noted, no uvula edema or deviation, no tonsillar hypertrophy, phonation normal. No visible foreign body in the posterior pharynx. Phonation is normal. NECK: Supple without meningismus; non-tender; no cervical lymphadenopathy, no masses. No stridor. CARD: RRR; no murmurs, no clicks, no rubs, no gallops; symmetric distal pulses RESP: Normal chest excursion without splinting or tachypnea; breath sounds clear and equal bilaterally; no wheezes, no rhonchi, no rales, pulse oximetry 98% on room air not hypoxic ABD/GI: Normal bowel sounds; non-distended; soft, non-tender, no rebound, no guarding; no palpable organomegaly or masses. BACK: The back appears normal EXT: Normal ROM in all joints; no cyanosis, no effusions, no edema SKIN: Normal color for age and race; warm; dry; good turgor NEURO: Moves all extremities equally; Motor and sensory function intact PSYCH: The patient's mood and manner are appropriate. Grooming and personal hygiene are appropriate. MDM: 24-year-old female with possible impacted food bolus in the esophagus. Was given glucagon in triage, will attempt oral challenge TRAVEL OUTSIDE OF THE [place] IN LAST 30 DAYS: No - Related Data Allergies/Adverse Reactions: No Known Allergies Allergy (Verified 02/11/20 11:20) Home Medications: wellbutrin, propanolol Past Medical History - General Information source: Patient - Social History Smoking Status: Never Smoker Chew tobacco use (# tins/day): No Frequency of alcohol use: None Drug Abuse: None Family History: Reviewed & Not Pertinent Patient has suicidal ideation: No Patient has homicidal ideation: No - Past Medical History Cardiac Medical History: Denies: Hx Heart Attack, Hx Hypertension Pulmonary Medical History: Denies: Hx Asthma Neurological Medical History: Denies: Hx Cerebrovascular Accident, Hx Seizures Renal/ Medical History: Denies: Hx Peritoneal Dialysis GI Medical History: Denies: Hx Hepatitis, Hx Hiatal Hernia, Hx Ulcer Psychiatric Medical History: Reports: Hx Depression - anxiety Infectious Medical History: Denies: Hx Hepatitis Past Surgical History: Reports: Hx Tonsillectomy. Denies: Hx Hysterectomy, Hx Mastectomy, Hx Open Heart Surgery, Hx Pacemaker - Immunizations Immunizations up to date: Yes Hx Diphtheria, Pertussis, Tetanus Vaccination: Yes Physical Exam - Vital signs Vitals: Temp Pulse Resp BP Pulse Ox 98.5 F 104 H 16 147/84 H 100 02/11/20 11:10 02/11/20 11:10 02/11/20 11:10 02/11/20 11:10 02/11/20 11:10 Course - Re-evaluation Re-evalutation: 02/11/20 12:26 Patient was given coke to see if she could pass the food bolus and is unable to do so. She continues to spit up into a bag. Will give IV glucagon, Reglan, Valium, reassess attempted oral challenge. 02/11/20 14:[address] Lynn, surgery. Patient still spitting after rechallenged with glucagon, Valium, Reglan. Requests barium swallow. 02/11/20 15:26 Received a call from the reading radiologist patient is completely obstructed. Spoke with Dr. Lynn, surgery. Discussed barium swallow findings. He will come see the patient. Patient is aware 02/11/20 17:01 As I was looking over the board in the ER patient's name had moved from the board apparently she was taken to the OR for endoscopy by the surgeon per nursing - Vital Signs Vital signs: Temp Pulse Resp BP Pulse Ox 98.3 F 82 16 135/78 H 100 02/11/20 16:25 02/11/20 16:25 02/11/20 16:25 02/11/20 16:25 02/11/20 16:25 Discharge - Discharge Clinical Impression: Food impaction of esophagus Qualifiers: Encounter type: initial encounter Qualified Code(s): T18.128A - Food in esophagus causing other injury, initial encounter Condition: Stable Disposition: ADMITTED OBSERVATION Admitting Provider: Surgicalist - [facility] Admitted: OR Referrals: MAXWELL DE LEON MD [Primary Care Provider] - Follow up as needed
--- NOTE | 2020-02-11 15:32 | RADIOLOGY REPORT (SQ) ---
EXAM DESCRIPTION: BARIUM SWALLOW ESOPHAGUS IMAGES COMPLETED DATE/TIME: 02/11/2020 2:56 pm REASON FOR STUDY: poss food bolus obstruction COMPARISON: None. TECHNIQUE: Under fluoroscopic guidance, patient ingested water soluble contrast. Fluoroscopic spot i mages and routine radiographic images acquired and stored on PACS. 12 MM BARIUM TABLET GIVEN: No. LIMITATIONS: Patient inability to tolerate p.o. intake. FLUOROSCOPY TIME: 60 second 3 images saved to PACS. FINDINGS: NEUROMUSCULAR COORDINATION OF SWALLOW: Normal. No aspiration. ESOPHAGEAL MOTILITY: Normal peristalsis. No esophageal spasm. ESOPHAGEAL MUCOSA: There is a filling defect within the midthoracic esophagus which prevents contrast passage. No contrast seen traversing the distal esophagus or GE junction. GASTRO-ESOPHAGEAL JUNCTION: Not evaluated. NON-GI TRACT STRUCTURES: No significant finding. OTHER: No other significant finding. IMPRESSION: Filling defect within the midthoracic esophagus compatible with given history of food im paction. Contrast unable to traverse the distal esophagus or stomach. Recommend GI consultation. Findings discussed with Dr. Palomares at 3/24/p.m. On 02/11/2020. COMMENT: Quality ID [id number]: Final reports for procedures using fluoroscopy that document radiation exp osure indices, or exposure time and number of fluorographic images (if radiation exposure indices are not available) TECHNICAL DOCUMENTATION: JOB ID: [id number] [employer]- All Rights Reserved Reading location - IP/workstation name: [email or web address]
--- NOTE | 2020-02-11 15:43 | PDOC H&P ---
History of Present Illness Admission Date/PCP: MAXWELL DE LEON History of Present Illness: CHANTEL YARBROUGH is a 24 year old femaleHPI: 24-year-old female presenting to the emergency department complaining of difficulty swallowing. Patient states she was eating barbecue chicken that had been pulled apart and cooked in a crockpot without bones when she felt like something became stuck in the lower throat. Patient states she tried to drink Coke milk and other items to see if she can ge t the food bolus to move but could not. Patient states she has still been gagging today and has not been able to eat or drink. Patient denies difficulty with speech or speaking Past Medical History Cardiac Medical History: Denies: Myocardial Infarction, Hypertension Pulmonary Medical History: Denies: Asthma Neurological Medical History: Denies: Seizures GI Medical History: Denies: Hepatitis, Hiatal Hernia Psychiatric Medical History: Reports: Depression - anxiety Hematology: Reports: Anemia - LOW IRON Denies: Sickle Cell Disease Past Surgical History Past Surgical History: Reports: Tonsillectomy Denies: Amputation, Hysterectomy, Mastectomy, Pacemaker Social History Smoking Status: Never Smoker Electronic Cigarette use?: No Frequency of Alcohol Use: None Hx Recreational Drug Use: No Drugs: None Hx Prescription Drug Abuse: No Family History Family History: Reviewed & Not Pertinent Parental Family History Reviewed: No Children Family History Reviewed: NA Sibling(s) Family History Reviewed.: NA Medication/Allergy Home Medications: Bupropion HCl [Wellbutrin Sr 150 mg Tablet] 1 tab PO Q12 07/26/19 Amox Tr/Potassium Clavulanate [Augmentin 400-57 mg/5 mL Suspension] 7 ml PO TID 08/02/19 Lidocaine/Transparent Dressing [Lidocaine 4% Kit] 1 each TP Q2 08/02/19 Oxycodone HCl/Acetaminophen [Percocet 5-325 mg Tablet] 1 - 2 tab PO Q4 08/02/19 Allergies/Adverse Reactions: No Known Allergies Allergy (Verified 02/11/20 11:20) Review of Systems Constitutional: PRESENT: anorexia Eyes: PRESENT: as per HPI. ABSENT: visual disturbances, other Ears: ABSENT: as per HPI, hearing changes, other Nose, Mouth, and Throat: ABSENT: as per HPI, headache(s), mouth pain, sore throat, vertigo, other Breasts: ABSENT: as per HPI, other Cardiovascular: ABSENT: as per HPI, chest pain, dyspnea on exertion, edema, orthropnea, palpitations, other Respiratory: ABSENT: as per HPI, cough, dyspnea, hemoptysis, sputum, other Gastrointestinal: ABSENT: as per HPI, abdominal pain, bloating, coffee ground emesis, constipation, diarrhea, dysphagia, heartburn, hematemesis, hematochezia, melena, nausea, vomiting, other Integumentary: ABSENT: as per HPI, diaphoresis, erythema, lesions, pruritus, r adenike, wounds, other Neurological: ABSENT: as per HPI, abnormal gait, abnormal movements, abnormal speech, confusion, convulsions, dizziness, focal weakness, frequent falls, lack of coordination, memory loss, numbness, paresthesias, restless legs, syncope, tingling, tremor(s), vertigo, weakness, other Psychiatric: ABSENT: as per HPI, anxiety, depression, hallucinations, homidical ideation, suicidal ideation, other Endocrine: ABSENT: as per HPI, cold intolerance, flushing, heat intolerance, menstrual abnormalities, polydipsia, polyphagia, polyuria, other Hematologic/Lymphatic: ABSENT: as per HPI, easy bleeding, easy bruising, lymphadenopathy, other Allergic/Immunologic: ABSENT: as per HPI, seasonal rhinorrhea, other Physical Exam Vital Signs: Temp Pulse Resp BP Pulse Ox 98.5 F 104 H 16 147/84 H 100 02/11/20 11:21 02/11/20 11:10 02/11/20 11:10 02/11/20 11:10 02/11/20 11:10 Intake & Output 02/10/20 02/11/20 02/12/20 06:59 06:59 06:59 Weight 109.6 kg General appearance: PRESENT: no acute distress Head exam: PRESENT: normocephalic Eye exam: PRESENT: EOMI Ear exam: PRESENT: normal external ear exam Mouth exam: PRESENT: moist Neck exam: PRESENT: full ROM Respiratory exam: PRESENT: clear to auscultation erin Cardiovascular exam: PRESENT: RRR Pulses: PRESENT: normal radial pulses, normal femoral pulses Vascular exam: PRESENT: normal capillary refill Breast: PRESENT: Normal GI/Abdominal exam: PRESENT: soft Rectal exam: PRESENT: deferred Extremities exam: PRESENT: full ROM Musculoskeletal exam: PRESENT: full ROM Neurological exam: PRESENT: alert, awake, oriented to person, oriented to place Psychiatric exam: PRESENT: appropriate affect Skin exam: PRESENT: dry Results Impressions: Esophagus X-Ray 02/11/20 14:13 IMPRESSION: Filling defect within the midthoracic esophagus compatible with given history of food impaction. Contrast unable to traverse the distal esophagus or stomach. Recommend GI consultation. Findings discussed with Dr. Palomares at 01/10/p.m. On 02/11/2020. Assessment & Plan - Plan Summary Plan Summary: impression esophageal foreign body plan upper endoscopy and removal risks benifitis including perforation has been discussed, she agrees to proceed.
--- NOTE | 2020-02-11 17:39 | Operative Report ---
Nonrecallable Operative Report DATE OF SURGERY: 02/11/20 PREOPERATIVE DIAGNOSIS: foreign body esophgus POSTOPERATIVE DIAGNOSIS: Foreign body esophagus OPERATION: Therapeutic upper endoscopy with removal of foreign body esophagus SURGEON: NATALIA EUBANKS ANESTHESIA: GA TISSUE REMOVED OR ALTERED: None COMPLICATIONS: None ESTIMATED BLOOD LOSS: 0 INTRAOPERATIVE FINDINGS: Mid esophageal food impaction PROCEDURE: Patient was brought to the negative pressure room in the preop area and induced under general anesthesia. After appropriate timeout site verification the procedure commenced. The Olympus gastroscope was passed into the posterior pharynx and easily traversed the upper esophageal sphincters into the proximal esophagus when we reached the midportion of the esophagus we noted the impacted foreign body appeared to be meat substance. The scope was slowly advanced against the foreign body and easily pushed it into the proximal stomach. The stomach was then visualized as well as the pylorus the proximal small stomach was identified the food bolus was sitting sitting below the GE junction and the entirety of the stomach appeared to be normal otherwise. The scope was then slowly withdrawn. The patient tolerated the procedure well.
--- NOTE | 2020-02-11 17:57 | Discharge Summary ---
Discharge Summary (SDC) - Discharge Final Diagnosis: esophageal foregin body Date of Surgery: 02/11/20 Discharge Date: 02/11/20 Condition: Good Referrals: MAXWELL DE LEON MD [Primary Care Provider] - Follow up as needed Discharge Diet: Full Liquids - x48 Discharge Activity: Activity As Tolerated Report the Following to Your Physician Immediately: Shortness of Breath, Vomiting
[2020-02-11 19:22] VITALS: BP 123/70
== END | disposition admitted as inpatient to this hospital (09) ==
LOC: ER 10:54
DX: T18.128A Food in esophagus causing other injury, initial encounter (principal); X58.XXXA Exposure to other specified factors, initial encounter
CPT/HCPCS: 99284; 96372; 96374; 96375; 74220; 43215; J2250; J1100; J3360; J3010; J1610; J2765; J2405; J2704; 43247; J0330

== ENCOUNTER → 2020-05-15 | Outpatient (CLI) | payer BC ==
--- NOTE | 2020-05-15 19:12 | RADIOLOGY REPORT (SQ) ---
EXAM DESCRIPTION: WRIST RIGHT 3 VIEWS IMAGES COMPLETED DATE/TIME: 05/15/2020 5:09 pm REASON FOR STUDY: M24.631 ANKYLOSIS, RIGHT WRIST M24.631 ANKYLOSIS, RIGHT WRIST COMPARISON: None. NUMBER OF VIEWS: Three views. TECHNIQUE: AP, lateral, and oblique radiographic images acquired of the right wrist. LIMITATIONS: None. FINDINGS: MINERALIZATION: Normal. BONES: No acute fracture or dislocation. No worrisome bone lesions. Normal alignment. SOFT TISSUES: No soft tissue swelling. No foreign body. OTHER: No other significant finding. IMPRESSION: NEGATIVE STUDY OF THE RIGHT WRIST. NO RADIOGRAPHIC EVIDENCE OF ACUTE INJURY. TECHNICAL DOCUMENTATION: JOB ID: [id number] 2010 [employer]- All Rights Reserved Reading location - IP/workstation name: [email or web address]
== END ==
LOC: RAD 16:52
PROVIDERS: ATTEND Internal Medicine
DX: M24.631 Ankylosis, right wrist (principal)

== ENCOUNTER 2020-10-14 11:36 | Emergency (ER) | payer BC ==
[2020-10-14 13:37] VITALS: BP 129/83
[2020-10-14] MEDS ORDERED: CEPHALEXIN 500 MG CAPSULE PO ONE (13:40)
[2020-10-14] MEDS ORDERED: MUPIROCIN 2% OINTMENT 22 GM TP ONE (13:41)
--- NOTE | 2020-10-14 13:44 | ER Document Report ---
ED Extremity Problem, Lower - General Chief Complaint: Leg Pain Stated Complaint: LEFT LEG PAIN Time Seen by Provider: 10/14/20 13:34 Primary Care Provider: MAXWELL DE LEON MD [Primary Care Provider] - Follow up in 3-5 days Mode of Arrival: Ambulatory Information source: Patient Notes: 25-year-old female presented to ED for a small bump to the left lateral upper leg. She states she pinched a bump a couple days ago and then it became more sore. She states she thought maybe she had been sitting up so she pinched it again. And now it is red around it. She does not have an abscess but she does have a cellulitis around the area. Given patient instructions on cleaning the area with soap and water using Epson salt soaks and Bactroban. She is also to take Keflex 4 times a day for 5 days. She has been instructed to follow-up with her primary care doctor. Constitutional: Negative for fever. HENT: Negative for sore throat. Eyes: Negative for visual changes. Cardiovascular: Negative for chest pain. Respiratory: Negative for shortness of breath. Gastrointestinal: Negative for abdominal pain, vomiting or diarrhea. Genitourinary: Negative for dysuria. Musculoskeletal: Negative for back pain. Skin: Cellulitis to the left lateral upper leg see above for description Neurological: Negative for headaches, weakness or numbness. 10 point ROS negative except as marked above and in HPI. PHYSICAL EXAMINATION: GENERAL: Well-appearing, well-nourished and in no acute distress. HEAD: Atraumatic, normocephalic. EYES: Pupils equal round extraocular movements intact, conjunctiva are normal. ENT: Nares patent NECK: Normal range of motion LUNGS: No respiratory distress Musculoskeletal: Normal range of motion NEUROLOGICAL: Normal speech, normal gait. PSYCH: Normal mood, normal affect. SKIN: Red inflamed area to the left lateral upper leg from insect bite that she has manipulated several times. TRAVEL OUTSIDE OF THE [place] IN LAST 30 DAYS: No - HPI Patient complains to provider of: Pain, Swelling, Other - Erythema Location: Thigh - Left lateral thigh Occurred: Other - 3 days Onset/Duration: Gradual Quality of pain: Achy Pain Level: 3 Recent injury: No Associated symptoms: Other - Head insect bite which she has continued to squeeze causing pain inflammation Exacerbated by: Nothing Relieved by: Nothing - Related Data Allergies/Adverse Reactions: No Known Allergies Allergy (Verified 02/11/20 11:20) Past Medical History - General Information source: Patient - Social History Smoking Status: Never Smoker Frequency of alcohol use: Social Drug Abuse: None Lives with: Family Family History: Reviewed & Not Pertinent Patient has suicidal ideation: No Patient has homicidal ideation: No - Past Medical History Cardiac Medical History: Reports: None Pulmonary Medical History: Reports: None EENT Medical History: Reports: None Neurological Medical History: Reports: None Endocrine Medical History: Reports: None Renal/ Medical History: Reports: None Malignancy Medical History: Reports: None GI Medical History: Reports: None, Hx Endoscopy - Esophageal dilatation Musculoskeletal Medical History: Reports None Skin Medical History: Reports Hx Cellulitis Psychiatric Medical History: Reports: Hx Anxiety, Hx Depression Traumatic Medical History: Reports: None Infectious Medical History: Reports: None Past Surgical History: Reports: Hx Adenoidectomy, Hx Tonsillectomy, Other - Endoscopy for food bolus removal January 2020 - Immunizations Immunizations up to date: Yes Hx Diphtheria, Pertussis, Tetanus Vaccination: Yes Physical Exam - Vital signs Vitals: Temp Pulse Resp BP Pulse Ox 98.5 F 80 20 129/83 H 100 10/14/20 13:35 10/14/20 13:35 10/14/20 13:35 10/14/20 13:35 10/14/20 13:35 Course - Vital Signs Vital signs: Temp Pulse Resp BP Pulse Ox 98.5 F 80 20 129/83 H 100 10/14/20 13:35 10/14/20 13:35 10/14/20 13:35 10/14/20 13:35 10/14/20 13:35 - Laboratory Results Critical Laboratory Results Reviewed: No Critical Results - Radiology Results Critical Radiology Results Reviewed: No Critical Results Discharge - Discharge Clinical Impression: Cellulitis of left thigh Condition: Stable Disposition: HOME, SELF-CARE Additional Instructions: CELLULITIS: You have an infection of your skin and underlying soft tissues called cellulitis. This is due to bacteria, which can enter through any break in the skin, or even through an irritated hair follicle. Untreated, cellulitis will usually worsen. Antibiotics are required. Usually, warm packs or warm soaks, and elevation of the infected area are recommended. You should start getting better within 24 to 36 hours. Most infections respond quickly to the right medication. Follow-up care is important, however, to check for abscess (boil) formation, unsuspected foreign body, or resistant infection. If you develop fever, chills, or if the area of infection is becoming rapidly more swollen or painful, call the doctor at once. Cephalexin The antibiotic you've been prescribed is a member of the cephalosporin class. This type of antibiotic covers a wide variety of infections, including those of the skin, lungs, and urinary tract. It's useful for staph infections. This antibiotic is slightly similar to the penicillin family. In rare cases, a person who is allergic to penicillin will also be allergic to this medication. If you have had a severe allergic reaction to penicillin, and have not taken this antibiotic since that time, notify your doctor. Antibiotics which cover many germs ("broad spectrum" antibiotics) are more likely to cause diarrhea or "yeast" infections. Women prone to vaginal yeast problems may suffer an attack after taking this antibiotic. In infants, oral thrush (white spots "stuck" on the cheek) or yeast diaper rash may result. See your doctor if these problems occur. Call at once if you develop itching, hives, shortness of breath, or lightheadedness. Bactroban Ointment Bactroban is very effective against the germs that cause infection within the skin. It's useful for impetigo and other superficial infections. Deeper infections require antibiotics by mouth or by shot. Apply the medicine three times a day for one week, or longer if your doctor has advised it. Stop the medicine and call your doctor if you develop large blisters, severe itching, increasing pain, swelling, fever, or spreading redness. Soap Cleansing Gently wash the wound daily using a mild soap (like Ivory, Phisoderm, Neutrogena). Use warm water, rubbing gently until all debris, ooze, and crusting have been washed from the wound. Allow to dry briefly (about 10 minutes) after cleaning. Repeat this cleansing at least three times a day for the first two days and then once or twice a day. Epsom Salt Soaks Soak the wound area in a container of warm epsom salt water. If you can't get the wound area into a bucket or haley, use a folded towel soaked in the epsom salt solution and apply to the area. Use clean hot tap water (about the temperature of a very warm bath), mixing in about one (1) teaspoon for every pint of water. Two gallon --> 16 teaspoons Epsom Salts One gallon --> 8 teaspoons Epsom Salts Two quarts --> 4 teaspoons Epsom Salts One quart --> 2 teaspoons Epsom Salts Soak the wound for about 20 minutes while gently moving it around in the water. Repeat this four (4) times a day. FOLLOW-UP CARE: If you have been referred to a physician for follow-up care, call the physicians office for an appointment as you were instructed or within the next two days. If you experience worsening or a significant change in your symptoms, notify the physician immediately or return to the Emergency Department at any time for re-evaluation. Prescriptions: Cephalexin Monohydrate [Keflex 500 mg Capsule] 500 mg PO Q6H 5 Days #20 capsule Referrals: MAXWELL DE LEON MD [Primary Care Provider] - Follow up in 3-5 days
== END 2020-10-14 13:50 | disposition home or self-care (01) ==
LOC: ER 11:36
DX: L03.116 Cellulitis of left lower limb (principal); M79.605 Pain in left leg
CPT/HCPCS: 99283; J3490